=== PATIENT | male | born 1955 | race Caucasian/White ===

== ENCOUNTER → 2018-11-05 | Outpatient (CLI) | payer MEDICARE ==
--- NOTE | 2018-11-05 14:03 | KCIC ---
EYE FOR FOREIGN BODY History: History of metal in the eyes, pre-MRI screening Comparison: None. Findings: 2 views of the orbits are submitted. No metallic foreign body is identified in the region of orbits. Impression: 1. No metallic foreign body is identified in the region of orbits. Electronically signed by: Kennedy Jerome MD (11/05/2018 2:00 PM) [email or web address]
--- NOTE | 2018-11-05 15:26 | KCIC ---
MRI Lumbar Spine without contrast History: Chronic back pain, bilateral hip pain, pain into both hips for over one year Technique: Multiplanar, multi sequential noncontrast MR imaging was performed of the lumbar spine. Comparison: None Findings: Lumbar vertebral body stature is mostly preserved other than multilevel small Schmorl's nodes. Conus terminates near the superior aspect of L1. There is fairly advanced degenerative disc disease greater on the right at L3-4, moderate to severe degenerative disc disease L4-5 and to a lesser degree at L2-3, minimally at L1-L2. AP alignment is within normal limits. There is focus of marrow edema of the posterior, superior L5 vertebral body endplate about 1.2 cm CC by 1.1 cm AP although not as defined on the T1 sequence. There is amorphous edema of the L3-4 endplates and left L4 inferior endplate. There is some edema of the pedicles on the left at L5 and L4 and on the right at L3 and L4. There is mild levoscoliosis centered near L3. T12-L1: Neural foramina and spinal canal are adequate. There is mild buckling of the ligamentum flavum and facet degenerative change. L1-L2: Neural foramina and spinal canal are adequate. There is mild buckling of the ligamentum flavum and [id number] facet hypertrophic change. L2-L3: There is mild buckling of the ligamentum flavum and facet hypertrophic change. There is minimal disc osteophyte complex. There is minimal narrowing of the far lateral recesses bilaterally. Neural foramina are overall adequate. L3-L4: There is moderate facet hypertrophic change and [id number] buckling of the ligamentum flavum somewhat greater on the right. There is prominence of posterior epidural fat centrally. There is minimal disc osteophyte complex, superimposed shallow broad protrusion about 2 to 3 mm AP. There is moderate to severe right lateral recess stenosis and contact descending right L4 nerve root, moderate narrowing of the left lateral recess and central canal. There is fairly severe narrowing of the right neural foramen with contact exiting right and L3 nerve root extending to extraforaminal region, posterior narrowing by facet and ligamentum flavum and also inferior narrowing by disc osteophyte complex. There is moderate narrowing of the left neural foramen. L4-L5: There is disc osteophyte complex and bulge more eccentric to left lateral recess. There is mild to moderate buckling of the ligamentum flavum and mild facet hypertrophic change. There is again fairly severe left lateral recess stenosis and contact descending left L5 nerve root, [id number] narrowing of the central canal and mild right lateral recess stenosis. There is severe narrowing of the left neural foramen with impingement of the exiting left L4 nerve root extending to proximal extraforaminal region. Right neural foramen is adequate. L5-S1: Neural foramina and spinal canal are adequate. Impression: 1. There is lateral recess as described, more significant narrowing on the right at L3-4 and on the left at L4-5 with contact of the descending right L4 and left L5 roots respectively. 2. There is neural foramina compromise as stated, more significant narrowing on the left at L4-5 and on the right at L3-4. 3. There is multilevel degenerative disc disease greatest at L3-4 and L4-5. There is endplate edema at L3-4 and L4-5 likely reactive/degenerative in etiology. There is more focal edema of the posterior L5 vertebral body extending to the endplate which may be degenerative in etiology, more aggressive marrow replacing lesion difficult to entirely exclude although considered less likely as not as defined on the T1 sequence. There is also some edema of the pedicles on the left at L4 and L5 and on the right at L3 and L4. Electronically signed by: Kennedy Jerome MD (11/05/2018 3:23 PM) [email or web address]
--- NOTE | 2018-11-06 08:59 | KCIC ---
EXAM: MRI RIGHT HIP DATE: 11/05/2018 3:30 PM CLINICAL INDICATION: Chronic back pain and bilateral hip pain COMPARISON: None. TECHNIQUE: Multiplanar, multisequence MR imaging of the right hip was performed without IV contrast. FINDINGS: No significant right hip joint effusion. No significant trochanteric bursal distention. Chondral thinning within the anterior superior right acetabulum. Associated subchondral edema and subtle cystic changes seen. Mild associated deformity of the anterior superior labrum suggesting underlying labral degeneration although a discrete tear is not seen. No evidence for fracture or osteonecrosis. Grossly normal muscle signal and bulk. Tendinous attachments of the gluteus medius and minimus as well as the hamstrings are intact. The tendinous attachments of the iliopsoas and direct and indirect heads of the rectus femoris are intact, normal in signal and morphology. Limited survey of pelvis: Limited survey of the visceral contents of the pelvis within normal limits. IMPRESSION: 1. Right hip joint osteoarthritis with anterior superior acetabular chondral thinning, subchondral edema and cystic change and labral degeneration 2. No evidence for fracture or osteonecrosis. Electronically signed by: Segun Napoles MD (11/06/2018 8:56 AM) [id number]
--- NOTE | 2018-11-06 09:06 | KCIC ---
EXAM: MRI Left HIP DATE: 11/05/2018 2:45 PM CLINICAL INDICATION: Left hip pain, chronic low back pain. COMPARISON: None. TECHNIQUE: Multiplanar, multisequence MR imaging left hip was performed without IV contrast. FINDINGS: No significant left hip joint effusion. Trace trochanteric bursal distention. Left hip joint osteoarthritis with mild superior chondral thinning and associated marginal acetabular proliferative change. Although no discrete labral tear is identified, mild labral irregularity may be seen with degeneration. No fracture or osteonecrosis. The tendinous attachments of the gluteus medius, gluteus minimus, iliopsoas and hamstrings are grossly intact. Negative periarticular mass lesion or focal muscular atrophy. Limited survey of pelvis: Limited survey of the visceral contents of the pelvis within normal limits. IMPRESSION: 1. Left hip joint osteoarthritis with chondral thinning and marginal proliferative changes. 2. No evidence for fracture or osteonecrosis. 3. Trace trochanteric bursal distention may be seen with trochanteric bursitis. Electronically signed by: Segun Napoles MD (11/06/2018 9:03 AM) [facility]-[email or web address]
== END | disposition home or self-care (01) ==
LOC: KCIC MRI 13:35
PROVIDERS: ATTEND Family Medicine
DX: M16.0 Bilateral primary osteoarthritis of hip (principal); M51.36 Other intervertebral disc degeneration, lumbar region; G89.29 Other chronic pain; M25.78 Osteophyte, vertebrae; M48.061 Spinal stenosis, lumbar region without neurogenic claudication; M51.46 Schmorl's nodes, lumbar region; M47.815 Spondylosis without myelopathy or radiculopathy, thoracolumbar region
CPT/HCPCS: 70030; 72148; 73721

== ENCOUNTER → 2019-01-28 | Outpatient (CLI) | payer MEDICARE ==
[~2019-01-28] MED LIST: BACL10TA PO; CANA100T PO; GABA-585 PO; IOHEXOL 180 MG/ML 10 ML VIAL. ONE; LANS15CA78 PO; LISI2.5T PO; methylPREDNISolone ACETATE 40 MG/ML VIAL. ONE; methylPREDNISolone ACETATE 80 MG/ML VIAL. ONE
--- NOTE | 2019-01-29 03:38 | PAIN ---
DATE OF SERVICE: 01/28/2019 INITIAL CONSULTATION FOR PAIN CLINIC CHIEF COMPLAINT: Low back and bilateral lower extremity pain, left greater than right. HISTORY OF PRESENT ILLNESS: This is a 63-year-old male who presents with history of pain for about 2 years, increasing, not a result of any specific injury or action he is aware of, but getting worse in the low back into the bilateral lower extremities, lateral and anterior thighs, mainly on the left worse than the right, but present bilaterally, worse with walking, standing, changing positions, better with sitting or lying down. Describes the pain as constant, sharp, stabbing, throbbing, shooting with tingling and numbness in the legs as well as anterior thighs and medial lower legs and intermittent in intensity, always present, changes during the day with activity, worse with walking and standing, burning, cramping, aching, cold sensation as well on his feet bilaterally. The patient reports it awakens him from sleep about twice a night, does not affect his bowel or bladder control, but does affect his ability to walk fairly significantly, and not using any assistive devices; however, the patient reports even walking 10-15 minutes can cause him to have to stop and sit down and rest. The patient has had some chiropractic treatment about a year ago, which was helpful at that time, but only lasted for about a day per treatment. The patient has had gabapentin, has tried baclofen, tramadol, ibuprofen, meloxicam, all of which do decrease the pain, but only to a moderate extent by about 10-20%. The patient did have MRI scan of the lumbar spine showing right lateral recess, more significant narrowing on the right at L3-L4 and on the left at L4-L5 with contact of the descending right L4 and left L5 roots, respectively. The patient reports a disability rating from 0-10, 10 being worst, is a 10 in all categories, family home responsibilities, recreation, social activity, sexual behavior, occupation, self-care and life support activities. The patient reports no loss of motor function, but significant fatigability of the lower extremities, especially on the left side. PAST MEDICAL HISTORY: Significant for type 2 diabetes, now insulin-dependent; hypertension, arthritis. PREVIOUS SURGERY: Include left shoulder surgery in 2004 and cholecystectomy in 1984. CURRENT MEDICATIONS: Include Prevacid, gabapentin, baclofen, lisinopril, Invokana. ALLERGIES: The patient has no known drug allergies. FAMILY HISTORY: Significant for diabetes. SOCIAL HISTORY: The patient does not drink alcohol, does not smoke. Denies any illegal, illicit or recreational drugs. Quit smoking 50 years ago actually. He is single. Lives locally in [place], [place] and is currently unemployed. 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 REVIEW OF SYSTEMS: The patient's review of systems is positive for those items mentioned in history of present illness. All systems reviewed and otherwise negative. It is complete, full and well documented on the patient's chart. PHYSICAL EXAMINATION: VITAL SIGNS: The patient's blood pressure 143/78, pulse 68, respirations 18, temperature 97.7 degrees Fahrenheit, height is 5 feet 10 inches, weight is 192 pounds. GENERAL: The patient is awake, alert, oriented, appropriate, very pleasant demeanor. HEENT: Shows normocephalic, atraumatic. Extraocular movements are intact and symmetrical. Oral cavity: Mucous membranes moist and pink. Dentition is intact. NECK: Shows anterior throat supple without palpable lymphadenopathy noted. Swallow reflex symmetrical. CHEST: Shows normal on inspection. Breath sounds clear to auscultation bilaterally. HEART: Shows S1, S2 clear. No murmurs auscultated. ABDOMEN: Soft, obese, nontender, nondistended. No palpable organomegaly is noted. No rebound or guarding demonstrated. BACK: Shows spine grossly in the midline, normal-appearing cervical lordotic curvature, thoracic kyphotic curvature and lumbar lordotic curvature. Lumbar paraspinous muscle shows symmetrical on inspection, with palpation shows some moderate tenderness in the middle and lower distribution of paraspinous muscles, but only diffusely without asymmetry, atrophy, hypertrophy or trigger points. No radiation of pain. The patient shows full rotational motion of lumbar spine, both laterally as well as extension and flexion without significant difficulty. No tenderness over the spinous processes, sacrum or sacroiliac regions. EXTREMITIES: Lower extremities show deep tendon reflexes 2+ in the patellar and 1+ tendo-calcaneus tendons, are equal. Motor exam is strong with 5/5 dorsiflexion, extension, quadriceps and hamstring flexion, symmetrical. Peripheral pulses are 1+ posterior tibia. No peripheral edema is noted bilaterally. Lower extremities are warm and dry to touch, equal in color and appearance. Straight leg raise noted to be negative for reproduction of radicular symptoms bilaterally. Gaenslen's and Vinay's maneuvers are negative bilaterally as well. The patient is able to stand, stand on his toes without difficulty or loss of balance, walks with a normal appearing gait, does not appear to favor the right or left lower extremity significantly for short distance in the office walking, not using any assistive devices to ambulate. SKIN: Shows warm and dry, good turgor. No edema. No sores, rashes or bruising throughout. IMPRESSION: 1. This is a 63-year-old male with approximately 2-year history of increasing pain in the low back and bilateral lower extremities, left greater than right in a radicular fashion. 2. MRI scan of lumbar spine as noted. 3. Hypertension. 4. Diabetes. 5. Arthritis. PLAN: Options were discussed with the patient including conservative medical management, physical therapies, interventional technique. He would like to pursue interventional techniques. We discussed a lumbar epidural steroid injection using description as well as anatomical models to describe the procedure. Risks were then discussed including, but not limited to bleeding, infection, possibility of epidural hematoma, subsequent neurological compromise, dural puncture, headaches, spinal cord and/or nerve damage, side effects of steroid medication and poor results regarding pain control. The patient understands and wished to proceed. The patient will return to clinic in approximately 2 weeks for followup. He was counseled on return appointment, activity level and side effects to be aware of. DIAGNOSIS: Lumbar radiculopathy with lumbar degenerative disk disease. PROCEDURE: Lumbar epidural steroid injection, translaminar approach at L4-L5 level using C-arm fluoroscopic guidance under sterile prep and drape using local anesthetic. MEDICATION INJECTED: A total of 120 mg Depo-Medrol plus 10 mL of preservative-free normal saline and 2 mL of contrast. CONDITION AT DISCHARGE: Stable. The patient tolerated procedure well, had no complications. MICHELLE ROA MD DR: WILL/jesus JOB#: [id number] / [id number]
== END ==
LOC: PNCL 13:22
PROVIDERS: ATTEND Anesthesiology
DX: M51.16 Intervertebral disc disorders with radiculopathy, lumbar region (principal); Z87.39 Personal history of other diseases of the musculoskeletal system and connective tissue; Z90.49 Acquired absence of other specified parts of digestive tract; Z79.899 Other long term (current) drug therapy; Z79.4 Long term (current) use of insulin; I10 Essential (primary) hypertension; E11.9 Type 2 diabetes mellitus without complications
CPT/HCPCS: 62323; J1030; J1040; Q9965